=== PATIENT | female | born 1995 | race Caucasian/White ===

== ENCOUNTER 2022-11-05 18:28 | Emergency (ER) | payer BC ==
[2022-11-05] MEDS ORDERED: Dexamethasone 10 MG/ML SDV IM STA (19:43)
[2022-11-05] MEDS ORDERED: Ketorolac 30 MG/ML SDV IM STA (19:43)
== END 2022-11-05 21:31 | disposition home or self-care (01) ==
LOC: MW.ED 18:28
DX: J02.9 Acute pharyngitis, unspecified (principal); J04.0 Acute laryngitis; Z88.8 Allergy status to other drugs, medicaments and biological substances
CPT/HCPCS: 36415; 70490; 86308; 96372; 99283; J1100; J1885; 99282